=== PATIENT | female | born 1970 | race Caucasian/White ===

== ENCOUNTER 2016-06-15 02:03 | Emergency (ER) | payer OTHER ==
[~2016-06-15] VITALS: Ht 172.7 cm; Wt 120.2 kg
[~2016-06-15 02:03] MED LIST: ADDERALL XR 3030 MG; LEVOTHYROXINE0.05 MG; LEXAPRO 10 MG T10 M1; NUVIGIL150 MG; VALTREX 500 MG500 M1; VITAMIN D 5050000 I1; ZYRTEC10 M4
[2016-06-15 03:57] VITALS: BP 126/70
== END 2016-06-15 03:58 | disposition home or self-care (01) ==
LOC: ER 02:03
DX: J02.0 Streptococcal pharyngitis (principal); Z98.890 Other specified postprocedural states; Z90.49 Acquired absence of other specified parts of digestive tract; Z90.710 Acquired absence of both cervix and uterus; Z88.6 Allergy status to analgesic agent; Z88.1 Allergy status to other antibiotic agents; Z91.041 Radiographic dye allergy status; F10.99 Alcohol use, unspecified with unspecified alcohol-induced disorder